=== PATIENT | male | born 1970 | race American Indian/Alaskan Native ===

== ENCOUNTER 2019-08-28 05:57 | Emergency (ER) | payer OTHER ==
[2019-08-28] MEDS ORDERED: HYDROcodone/ACETAMINOPHEN 5-325 MG TAB PO STA (07:47)
--- NOTE | 2019-08-28 08:12 | Emergency Department Report ---
ED Lower Extremity HPI - General Chief Complaint: Extremity Problem,Nontraumatic Stated Complaint: KNEE PAIN Time Seen by Provider: 08/28/19 07:42 Source: patient Mode of arrival: Ambulatory Limitations: No Limitations - History of Present Illness Initial Comments: 48-year-old -[place] male with the gym 3-4 days ago when was doing leg extensions in the elliptical afterwards he went to work where he is due for about 10 hours and reports some knee pain and swelling since that time. No numbness or tingling. No change in color. No direct trauma. Reports no calf pain, no fevers, chills, sweats. Pain is throbbing, worse with range of motion Injury: Knee: Left Severity: mild Improves With: other (with utilization of knee brace with utilization of knee brace) Worsens With: weight bearing, palpation - Related Data Previous Rx's Medication Instructions Recorded Last Taken Type Ketorolac [Toradol] 10 mg PO Q6H PRN #15 tablet 08/28/19 Unknown Rx Allergies Allergy/AdvReac Type Severity Reaction Status Date / Time No Known Allergies Allergy Unverified 08/28/19 06:19 ED Review of Systems ROS: Stated complaint: KNEE PAIN Other details as noted in HPI Comment: All other systems reviewed and negative ED Past Medical Hx - Past Medical History Previous Medical History?: Yes Hx Hypertension: Yes - Surgical History Past Surgical History?: Yes Additional Surgical History: eye, hernia - Social History Smoking Status: Never Smoker Substance Use Type: None - Medications Home Medications: Home Medications Medication Instructions Recorded Confirmed Last Taken Type Ketorolac [Toradol] 10 mg PO Q6H PRN #15 tablet 08/28/19 Unknown Rx ED Physical Exam - General Limitations: No Limitations General appearance: alert, in no apparent distress - Head Head exam: Present: atraumatic, normocephalic - Eye Eye exam: Present: normal appearance - ENT ENT exam: Present: mucous membranes moist - Neck Neck exam: Present: normal inspection - Respiratory Respiratory exam: Present: normal lung sounds bilaterally. Absent: respiratory distress - Cardiovascular Cardiovascular Exam: Present: regular rate, normal rhythm. Absent: systolic murmur, diastolic murmur, rubs, gallop - GI/Abdominal GI/Abdominal exam: Present: soft, normal bowel sounds - Rectal Rectal exam: Present: deferred - Extremities Exam Extremities exam: Present: normal inspection, tenderness, normal capillary refill, other (tenderness just above the patella with minimal swelling. joint stable. Full Rom noted. no popliteal masses). Absent: calf tenderness - Back Exam Back exam: Present: normal inspection - Neurological Exam Neurological exam: Present: alert, oriented X3 - Psychiatric Psychiatric exam: Present: normal affect, normal mood - Skin Skin exam: Present: warm, dry, intact, normal color. Absent: rash ED Course Vital Signs 08/28/19 08/28/19 08/28/19 06:01 06:19 07:42 Temperature 98.4 F Pulse Rate 95 H 87 Respiratory 20 18 18 Rate Blood Pressure 187/133 Blood Pressure 176/127 [Right] O2 Sat by Pulse 97 100 98 Oximetry 08/28/19 07:43 Temperature 97.9 F Pulse Rate 85 Respiratory 18 Rate Blood Pressure Blood Pressure 185/113 [Right] O2 Sat by Pulse 98 Oximetry Critical care attestation.: If time is entered above; I have spent that time in minutes in the direct care of this critically ill patient, excluding procedure time. ED Disposition Clinical Impression: Knee pain, left Disposition: DC-01 TO HOME OR SELFCARE Is pt being admited?: No Does the pt Need Aspirin: No Condition: Stable Instructions: Arthralgia (ED), Ice Pack Application (ED), Knee Bursitis (ED) Additional Instructions: Please continue to wear your knee brace and ice the knee. Follow-up with also as we discussed. No strenuous activity until cleared by without Prescriptions: Ketorolac [Toradol] 10 mg PO Q6H PRN #15 tablet PRN Reason: Pain Referrals: DINESH VALVERDE MD [Staff Physician] - 3-5 Days
[2019-08-28] MEDS ORDERED: cloNIDine 0.1 MG TAB ONE (08:33)
[2019-08-28] MEDS ORDERED: cloNIDine 0.1 MG TAB PO ONE (08:35)
[2019-08-28 08:55] VITALS: BP 161/113
== END 2019-08-28 08:55 | disposition home or self-care (01) ==
LOC: ED 05:57
DX: M25.562 Pain in left knee (principal); I10 Essential (primary) hypertension; Z88.5 Allergy status to narcotic agent
CPT/HCPCS: 99282